=== PATIENT | male | born 1935 | race Caucasian/White ===

== ENCOUNTER 2016-09-23 13:35 | Inpatient (IN) | payer MEDICARE, OTHER ==
[2016-09-18 09:18] VITALS: BP 153/82
[~2016-09-23] VITALS: Ht 172.7 cm; Wt 81.0 kg
[~2016-09-23 13:35] MED LIST: ACET-1600 PO; BACITRACIN 50,000 UNIT ONE; BUPIVACAINE/PF-EPI 0.5% 1:200K ONE; CYCL5TAB PO; DOCU240C53 PO; GABA300C10 PO; MORP15TA PO; THROMBIN 5,000 UNIT VIAL TP ONE; VANCOMYCIN 1,000 MG ONE
[2016-09-23] MEDS ORDERED: LACTATED RINGERS 1,000 ML IV SCH (14:08)
[2016-09-23] MEDS ORDERED: LIDOCAINE 1%, 2ML SQ PRN (14:30)
[2016-09-23] MEDS ORDERED: FENTANYL PF 250 MCG/5ML ONE (16:22)
[2016-09-23] MEDS ORDERED: ROCURONIUM 10 MG/ML ONE (18:50)
[2016-09-23] MEDS ORDERED: CEFAZOLIN 1,000 MG ONE (18:50)
[2016-09-23] MEDS ORDERED: NEOSTIGMINE 1 MG/ML, 10ML ONE (18:50)
[2016-09-23] MEDS ORDERED: ONDANSETRON 2MG/ML, 2ML ONE (18:50)
[2016-09-23] MEDS ORDERED: PHENYLEPHRINE 10 MG/ML ONE (18:50)
[2016-09-23] MEDS ORDERED: GLYCOPYRROLATE 0.2MG/1ML ONE (18:50)
[2016-09-23] MEDS ORDERED: PROPOFOL 10 MG/ML, 20ML ONE (18:50)
[2016-09-23] MEDS ORDERED: METOCLOPRAMIDE 5 MG/ML, 2ML IV PRN (19:00)
[2016-09-23] MEDS ORDERED: PROMETHAZINE 25 MG/ML, 1ML IV PRN (19:00)
[2016-09-23] MEDS ORDERED: MEPERIDINE/PF 25MG/0.5ML IVPush PRN (19:00)
[2016-09-23] MEDS ORDERED: ONDANSETRON 2MG/ML, 2ML IVPush PRN (19:00)
[2016-09-23] MEDS ORDERED: LABETALOL 5MG/ML, 20ML IV PRN (19:00)
[2016-09-23] MEDS ORDERED: OXYcodone 5 MG/5 ML ORAL.SOL UDC PO PRN (19:00)
[2016-09-23] MEDS ORDERED: ACETAMINOPHEN 325 MG TABLET PO PRN (19:00)
[2016-09-23] MEDS ORDERED: hydrALAzine 20 MG/ML, 1ML IV PRN (19:00)
[2016-09-23] MEDS ORDERED: BUPIVACAINE/PF-EPI 0.5% 1:200K INFIL ONE (19:16)
[2016-09-23] MEDS ORDERED: ACETAMINOPHEN 650 MG/20.3 ML UDC ONE (20:36)
[2016-09-23] MEDS ORDERED: OXYcodone 5 MG/5 ML ORAL.SOL UDC ONE (20:36)
[2016-09-23] MEDS ORDERED: FENTANYL PF 100 MCG/2ML ONE ×2 (20:36→21:07)
[2016-09-23] MEDS: FENTANYL PF 100 MCG/2ML IV PRN ×3 (20:41→21:55)
[2016-09-23] MEDS ORDERED: HYDROmorphone 1 MG/ML, 1ML ONE (20:45)
[2016-09-23] MEDS: HYDROmorphone 1 MG/ML, 1ML IV PRN ×2 (20:48→20:58)
[2016-09-23] MEDS ORDERED: PLEASE ENTER ALLERGIES MC SCH ×2 (21:00)
[2016-09-23] MEDS ORDERED: HYDROmorphone PCA 30 MG/30 ML ONE ×2 (21:35→21:38)
[2016-09-23] MEDS ORDERED: HYDROmorphone PCA 30 MG/30 ML IV PRN (22:00)
[2016-09-23 23:21] VITALS: BP 116/67
[2016-09-23] MEDS ORDERED: HYDROcodone/APAP 10/325 MG TABLET PO PRN (23:30)
[2016-09-23] MEDS ORDERED: DIPHENHYDRAMINE 50 MG/ML, 1ML IVPush PRN (23:30)
[2016-09-23] MEDS ORDERED: MAGNESIUM HYDROXIDE 8%, 30ML UDC PO PRN (23:30)
[2016-09-23] MEDS ORDERED: morphine SULFATE 10 MG/ML, 1ML IV PRN (23:30)
[2016-09-23] MEDS ORDERED: ONDANSETRON 2MG/ML, 2ML IV PRN (23:30)
[2016-09-23] MEDS ORDERED: OXYcodone/APAP 5/325MG TABLET PO PRN (23:30)
[2016-09-23] MEDS ORDERED: BISACODYL 10 MG SUPP PR PRN (23:30)
[2016-09-23] MEDS ORDERED: DIPHENHYDRAMINE 25 MG CAPSULE PO PRN (23:30)
[2016-09-23] MEDS ORDERED: PHARMACY MAY ADJ FOR RENAL FX MC PRN (23:30)
[2016-09-24 00:20] VITALS: BP 116/67
[2016-09-24] MEDS: NS + 20MEQ KCL 1,000 ML IV SCH ×2 (00:38→12:00)
[2016-09-24] MEDS: CEFAZOLIN PMX 1GM/50ML 50 ML IVPB SCH ×2 (03:12→12:00)
[2016-09-24] MEDS: CYCLOBENZAPRINE 10 MG TABLET PO SCH ×3 (03:14→23:01)
[2016-09-24 04:09] VITALS: BP 135/81
[2016-09-24 06:45] VITALS: BP 126/78
[2016-09-24] MEDS ORDERED: SENNA/DOCUSATE TABLET PO SCH (09:00)
[2016-09-24] MEDS ORDERED: OXYC1TAB9 PO (09:50)
[2016-09-24] MEDS ORDERED: CYCL5TAB PO (09:50)
[2016-09-24] MEDS ORDERED: MORP15TA PO (09:50)
[2016-09-24] MEDS: DOCUSATE CALCIUM 240 MG CAPSULE PO SCH (10:03)
[2016-09-24] MEDS: GABAPENTIN 300 MG CAPSULE PO SCH (10:04)
[2016-09-24] MEDS: OXYcodone/APAP 10/325MG TABLET PO PRN ×4 (10:09→20:00)
[2016-09-24 15:30] VITALS: BP 106/64
[2016-09-24] MEDS ORDERED: KETOROLAC 30 MG/1 ML IM ONE (18:30)
[2016-09-24] MEDS ORDERED: KETOROLAC 30 MG/1 ML IVPush ONE (18:30)
[2016-09-24] MEDS ORDERED: KETOROLAC 10MG TABLET PO ONE (18:30)
[2016-09-24 22:07] VITALS: BP 89/52
[2016-09-25] MEDS: OXYcodone/APAP 10/325MG TABLET PO PRN ×4 (00:32→22:52)
[2016-09-25 06:15] VITALS: BP 130/69
[2016-09-25] MEDS ORDERED: SODIUM CHLORIDE 0.9%, 500ML IVBOLUS ONE (07:30)
[2016-09-25] MEDS: NS + 20MEQ KCL 1,000 ML IV SCH ×2 (07:45→12:21)
[2016-09-25 08:26] LABS: BLOOD UREA NITROGEN 25 mg/dL (7-18)
[2016-09-25] MEDS: SENNA/DOCUSATE TABLET PO SCH (09:00)
[2016-09-25] MEDS: GABAPENTIN 300 MG CAPSULE PO SCH (09:12)
[2016-09-25] MEDS: DOCUSATE CALCIUM 240 MG CAPSULE PO SCH (09:12)
[2016-09-25] MEDS: CYCLOBENZAPRINE 10 MG TABLET PO SCH ×2 (09:12→21:37)
[2016-09-25 16:30] VITALS: BP 122/76
[2016-09-25 19:34] VITALS: BP 136/76
[2016-09-26] MEDS: NS + 20MEQ KCL 1,000 ML IV SCH ×2 (01:52→13:49)
[2016-09-26 02:01] VITALS: BP 127/74
[2016-09-26] MEDS: OXYcodone/APAP 10/325MG TABLET PO PRN ×4 (02:50→17:37)
[2016-09-26 07:46] VITALS: BP 109/59
[2016-09-26] MEDS: GABAPENTIN 300 MG CAPSULE PO SCH (09:00)
[2016-09-26] MEDS: DOCUSATE CALCIUM 240 MG CAPSULE PO SCH (09:01)
[2016-09-26] MEDS: SENNA/DOCUSATE TABLET PO SCH (09:01)
[2016-09-26] MEDS: CYCLOBENZAPRINE 10 MG TABLET PO SCH (09:02)
[2016-09-26 09:39] LABS: BLOOD UREA NITROGEN 15 mg/dL (7-18)
[2016-09-26 15:33] VITALS: BP 116/72
== END 2016-09-26 18:00 | disposition home or self-care (01) | DRG 520 ==
LOC: OUT 13:35 → 4NOR 22:41 → OUT 23:29 → OBSVTOIN 23:29
PROVIDERS: ADMIT Neurological Surgery; ATTEND Neurological Surgery
PROC: 01NB0ZZ Release Lumbar Nerve, Open Approach (ICD-10-PCS; 2016-09-23)
PROC: 0SB20ZZ Excision of Lumbar Vertebral Disc, Open Approach (ICD-10-PCS; principal; 2016-09-23 17:00)
DX: M48.06 Spinal stenosis, lumbar region (principal); M54.16 Radiculopathy, lumbar region; G89.29 Other chronic pain; G47.33 Obstructive sleep apnea (adult) (pediatric); K21.9 Gastro-esophageal reflux disease without esophagitis; E78.5 Hyperlipidemia, unspecified; M19.90 Unspecified osteoarthritis, unspecified site; Z82.3 Family history of stroke; Z86.718 Personal history of other venous thrombosis and embolism; Z90.49 Acquired absence of other specified parts of digestive tract; Z85.46 Personal history of malignant neoplasm of prostate
CPT/HCPCS: 36415; 72100; 80048; 85025; 93005; J0690; J1170; J1885; J2405; J2704; J2710; J3010; J3370; J3480; J3490; J2370; J7040; J7120

== ENCOUNTER → 2019-07-27 | Outpatient (CLI) | payer MEDICARE, OTHER ==
[~2019-07-27] MED LIST changes: -BACITRACIN 50,000 UNIT ONE; -BUPIVACAINE/PF-EPI 0.5% 1:200K ONE; +OXYC-432 PO; -THROMBIN 5,000 UNIT VIAL TP ONE; -VANCOMYCIN 1,000 MG ONE
== END | disposition home or self-care (01) ==
LOC: ROC 07:45
PROVIDERS: ATTEND Radiology Radiation Oncology
DX: Z02.9 Encounter for administrative examinations, unspecified (principal)